=== PATIENT | male | born 1980 | race Caucasian/White ===

== ENCOUNTER 2021-12-21 09:22 | Outpatient (CLI) | payer OTHER | END 2021-12-21 09:23 | disposition home or self-care (01) | LOC: CSHRAD 09:22 | PROVIDERS: ATTEND Otolaryngology Plastic Surgery within the Head & Neck | DX: R13.12 Dysphagia, oropharyngeal phase (principal); R13.10 Dysphagia, unspecified | CPT/HCPCS: 74220; 74230 ==